=== PATIENT | male | born 1955 | race Caucasian/White ===

== ENCOUNTER 2016-11-13 09:20 | Day surgery (SDC) | payer BC, OTHER ==
[~2016-11-13 09:20] MED LIST: RINGERS SOLUTION,LACTATED 1,000 ML IV PRN
--- OUTSIDE RECORDS SUMMARY | 2016-11-13 09:24 | XMS REPORT | Continuity of Care Document ---
:1955 Author Organization ([facility]) Address [place] [address] Phone [phone] Care Team Providers Name Role Phone Sriram Stewart Primary Care Provider [phone] Source Comments This disclosure is being made pursuant to the Care Everywhere program, applicable federal and state laws, and may not contain all informaitonavailable regarding this patient. ([facility]) Active Allergies and Adverse Reactions Allergen Noted Date Severity Reactions Comments Diltiazem Hcl 10/14/2015 Unknown Current Medications Prescription Sig. Disp. Refills Start Date End Date Status metroNIDAZOLE 0.75 % Apply topically at Active gel bedtime as needed. Apply a thin layer to face acetaminophen 325 mg Take 2 tablets 60 tablet 3 10/20/2015 Active tablet (650 mg total) by mouth every 4 hours as needed. ketoconazole 2 % 11 11/23/2015 Active shampoo metoPROLol (TOPROL XL) Take 1 tablet (100 90 tablet 2 02/19/2016 Active succinate 100 mg XL mg total) by mouth tablet daily. lisinopril-hydrochloro Take 1 tablet by 90 tablet 4 03/31/2016 Active thiazide 20-12.5 mg mouth daily. per tablet Active Problems Problem Noted Date Single epileptic seizure 11/06/2015 Last Assessment & Plan: 11/06/2015 Single seizure 10/15/2015 with tongue lacceration and metabolic acidosis. It may have been alcohol related or related to fall with subdural hematoma. He has not had another known seiuzre By [place] Law he must go 6 months without another seizure in order to drive. He may work but should not drive, should avoid heights, bodies of water, or dangerous machinery. He should continue to decrease alcohol intake. The subdural hematoma increases his seizure risk to about 20% - most wouldnot treat this risk though he is generally on blood thinner. He should report his medical event to DOT. He would need documentation not sooner than 6 months after seizure - Apr 16. If you have questions please call us: Department of Neurology Epilepsy Program(8:00 a.m. to 5:00 p.m. Thursday-Thursday) at [phone] After 5:00 p.m., weekends or holidays, call [phone] and ask for the Neurologist product/industry consultant. You may also use the 24 hour Toll-free number at . Traumatic epidural hematoma 10/17/2015 Overview: Of cervical spine- monitor neuro Compression of spinal cord 10/14/2015 Overview: Monitor neuro Seizure-like activity 10/14/2015 Overview: EEG Alcohol abuse 12/09/2014 Chronic atrial fibrillation 12/09/2014 Overview: Formatting of this note may be different from the original. CARDIOVASCULAR PROCEDURES ECHO/MUGA: Echo (Left ventricular systolic function is normal. The left atrium is borderline dilated. There is mild mitral regurgitation. There is aortic valve sclerosis without stenosis. ) - 03/14/2008 Echo: Normal left ventricular systolic function. LV Ejection Fraction=55-65% (based on visual estimate). No significant valve disease. 10/19/2015 STRESS TESTS: MPI (Normal EF, Normal, Full Layo 10:00) - 03/14/2008 VASCULAR: KADEN (Normal) - 02/18/2008 Carotid Duplex (Mild Disease in Bilateral ICAs, Vertebral: Bilateral Antegrade Flow) - 11/11/2012 Tobacco abuse 12/09/2014 intermodal owner operator truck driver (current) use of anticoagulants 12/07/2014 Overview: ANTICOAGULATION PROFILE: Primary Number: [phone] LOCAL LAB: Name: [facility] Phone: Fax: Indication for Warfarin: Atrial Fibrillation Target INR Range: 2.0-3.0 Duration of Warfarin Therapy: Indefinite Date Warfarin Initiated: Alcohol use: 2-8 per day Essential (primary) hypertension 12/15/2013 CVA (cerebral infarction) Immunizations Name Dates Previously Given Next Due Pneumococcal Polysaccharide, PPSV23 (Pneumovax 23) 10/19/2015 Social History Tobacco Use Types Packs/Day Years Used Date Current Every Day Smoker Cigarettes 1 Smokeless Tobacco: Never Used Tobacco Cessation:Ready to Quit: No Comments: Alcohol Use Drinks/Week oz/Week Comments Yes Last Filed Vital Signs Vital Sign Reading Time Taken Blood Pressure 134/66 12/18/2015 9:11 AM CDT Pulse 70 12/18/2015 9:11 AM CDT Temperature 35.9 C (96.6 F) 11/02/2015 9:16 AM CDT Respiratory Rate 16 10/20/2015 4:00 AM CDT Height 1.93 m (6' 3.98") 12/18/2015 9:11 AM CDT Weight 83.462 kg (184 lb) 12/18/2015 9:11 AM CDT Body Mass Index 22.41 12/18/2015 9:11 AM CDT Oxygen Saturation 99% 10/20/2015 8:03 AM CDT Plan of Care Date Type Specialty Providers Description 12/16/2016 Appointment Heart and Vascular Mishel Ramirez MD Chief Comp: Patient [address] Reported Reason For [place] [id number] Visit [phone] (Fax) Health Maintenance Due Date Last Done Comments HCV Screening 1955 Hepatitis B Vaccine (1 of 3 - Primary Series) 1955 Tdap Vaccine 1965 Lipid Disorder Screening 1972 Td Vaccine 1972 Colonoscopy 04/24/2004 Prostate Cancer Screening 2004 Zoster Vaccine 2014 Influenza Vaccine: Seasonal (#1) 02/18/2016 Pneumococcal Vaccine Completed 10/19/2015 Results from Last 3 Months Not on file
[2016-11-13] MEDS ORDERED: RINGERS SOLUTION,LACTATED 1,000 ML IV ONE (09:40)
[2016-11-13 12:26] VITALS: BP 122/70
== END 2016-11-13 09:21 | disposition home or self-care (01) ==
LOC: AMB 09:20
PROVIDERS: ATTEND Allergy & Immunology
PROC: 0DJ08ZZ Inspection of Upper Intestinal Tract, Via Natural or Artificial Opening Endoscopic (ICD-10-PCS; 2016-11-13)
PROC: 0CBV8ZX Excision of Left Vocal Cord, Via Natural or Artificial Opening Endoscopic, Diagnostic (ICD-10-PCS; principal; 2016-11-13 11:40)
DX: D02.0 Carcinoma in situ of larynx (principal); R49.0 Dysphonia; R13.10 Dysphagia, unspecified; I10 Essential (primary) hypertension; F17.200 Nicotine dependence, unspecified, uncomplicated; Z68.23 Body mass index [BMI] 23.0-23.9, adult

== ENCOUNTER 2016-11-16 15:46 | Emergency (ER) | payer BC, OTHER ==
--- OUTSIDE RECORDS SUMMARY | 2016-11-16 16:08 | XMS REPORT | Continuity of Care Document ---
:1955 Author Organization [facility] ([facility]) Address [place] [address] Phone [phone] Care Team Providers Name Role Phone Sriram Stewart Primary Care Provider [phone] Source Comments This disclosure is being made pursuant to the Care Everywhere program, applicable federal and state laws, and may not contain all informaitonavailable regarding this patient.[facility] ([facility]) Active Allergies and Adverse Reactions Allergen Noted [...] has not had another known seiuzre By [place] Law he must go 6 months without [...] Program(8:00 a.m. to 5:00 p.m. Thursday-Thursday) at [phone] After 5:00 p.m., weekends or holidays, call [phone] and ask for the Neurologist senior litigation paralegal. 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
[2016-11-16 16:18] LABS: Hematocrit 37.6 % (42.0-52.0); Hemoglobin 13.2 gm/dL (13.5-18.0); Mean Cell Volume 97.2 fl (78-100); Mean Corpuscular Hemoglobin 34.1 pg (27-31); Mean Corpuscular Hgb Conc 35.1 g/dl (32-36); Mean Platelet Volume 9.3 fl (6.0-9.5); Neutrophil # 4.1 K/mm3 (1.3-6.0); Platelet Count 174 K/mm3 (150-450); Red Blood Count 3.87 M/mm3 (4.7-6.0); Red Cell Distribution Width 11.9 % (11.5-14.0); White Blood Count 6.3 K/mm3 (4.0-10.5)
--- NOTE | 2016-11-16 16:28 | ERNOTE ---
Neuro HPI ER Record Date of Service: 11/16/16 Presenting Symptoms: other - Seizure Time Seen by Provider: 11/16/16 15:59 Source: patient, family, RN notes reviewed, EMS notes reviewed Exam Limitations: no limitations Immunizations: IMMUNIZATION HX Immunizations Up to Date Yes History of Influenza Vaccine Yes Hx Pneumococcal Vaccination No Allergies/Adverse Reactions: Allergies Allergy/AdvReac Type Severity Reaction Status Date / Time diltiazem HCl [From Cardizem] AdvReac Mild SHAKINESS, Verified 11/16/16 15:51 IMPOTENCE Home Medications: HOME MEDICATIONS Metoprolol Succinate [Toprol Xl] 100 mg PO DAILY 11/20/14 [Last Taken 04/18/15 07:00] Lisinopril/Hydrochlorothiazide [Lisinopril-Hctz 20-12.5 mg Tab] 1 each PO DAILY 11/13/16 [Last Taken 11/13/16 08:00] Sildenafil Citrate [Viagra] 100 mg PO PRN PRN 11/13/16 [Last Taken Unknown] Aspirin/Calcium Carbonate/Mag [Aspirin Buffered 325 mg Tab] 325 mg PO DAILY [Last Taken Unknown] - History of Present Illness Narrative: 61 y/o male brought to the ED by EMS from home after an episode of seizure activity. He was asleep in the recliner when his noticed that he was having repetitive jerking movements. She went across the street to get their neighbor for help. The episode had stopped when she returned. He has had similar episodes in the past. She reports that they were told his seizures were due to dehydration and hyponatremia because he dose not drink enough water. He has been evaluated by neurology at [facility]. The symptoms were never determined to actually be seizures. He is not on any anticonvulsant medication. He had a laryngoscopy done here by Dr. Allen 3 days ago to evaluate dysphagia and hoarseness. He has not been eating or drinking as much as usual since then. He reports drinking 6 beers per day (his says it is more than this) but has not had any alcohol today. Onset: sudden onset, gone now - Character of Deficits Baseline Cognition: Present: alert, oriented x 4 Baseline Gait: Present: walks w/o assistance Associated Symptoms: Denies: fever/chills, sweating, chest pain, neck/back pain , headache, altered mental status, disoriented, confused Prior Treament: Reports: similar symptoms before. Denies: recently seen Review of Systems - Review of Systems Constitutional: Absent: recent illness, fever EYE: Absent: blurred vision, vision changes ENT: Absent: nose congestion, sore throat Respiratory: Absent: shortness of breath, cough Cardiology: Absent: chest pain, palpitations Gastrointestinal/Abdominal: Absent: nausea, vomiting, abdominal pain Genitourinary: Absent: frequency, dysuria Musculoskeletal: Absent: muscle pain, neck pain Skin: Absent: rash, lesions Neurological: Absent: headache, dizziness/light-headedness Endocrine: Present: no symptoms reported Hematologic/Lymphatic: Present: no symptoms reported Psych: Present: no symptoms reported - Patient's Past Medical History Patient History - Medical: Arthritis, Seizures, Other - Erectile dysfunction Patient History - Cardiac/Respiratory: Atrial Fibrillation, CVA/Stroke, Hypertension, Hyperlipidemia Patient History - Cancer: Skin Patient History - Surgical Procedures: Colonoscopy, T & A, Orthopedic Patient History - Other: None - Family History Father Family History - Medical: No pertinent hx Family History - Cardiac/Respiratory: Myocardial Infarction Family History - Cancer: No pertinent family hx Brother Family History - Medical: Dementia Family History - Cardiac/Respiratory: No pertinent hx Family History - Cancer: No pertinent family hx - Social History Living Situations: spouse Abuse History: No History of abuse Psych History: No pertinent hx Smoking Status: Current every day smoker Have you smoked in the past 12 months: Yes Alcohol Use: occasionally Drug Use: none - Immunizations Immunizations Up to Date: Yes Hx Pneumococcal Vaccination: No History of Influenza Vaccine: Yes Physical Exam - Physical Exam General Appearance: Present: wd/wn, alert, no apparent distress Eye Exam: Normal inspection: bilateral, PERRL: bilateral, EOMI: bilateral Neck: Present: normal inspection, nontender, supple, full range of motion Respiratory: Present: no respiratory distress, normal breath sounds, no accessory muscle use, lungs clear Cardiovascular/Chest: Present: no murmur, normal peripheral pulses, irregularly irregular - Afib on monitor Gastrointestinal/Abdominal: Present: nontender, nondistended, soft Extremity Exam: Present: normal inspection, no edema Neurological Exam: Present: alert, oriented, no motor/sensory deficits, other - flat affect. Absent: normal mood/affect Skin Exam: Present: normal color, warm/dry Randolph Coma Scale - Assess Eye Opening: Spontaneous Motor: Obeys Commands Verbal: Oriented - Total Coma Scale Total: 15 ED Progress - Results and Orders Patient's Lab Results:: I have reviewed the patient's lab results. - Vital Signs Patient's Vital Signs:: I have reviewed the patient's vital signs. Vital Signs: Vital Signs 11/16/16 11/16/16 15:47 15:52 Temperature 36.4 C L Pulse Rate 83 79 Respiratory 15 Rate Blood Pressure 109/64 O2 Sat by Pulse 92 Oximetry - Progress/Reassessment Chief Complaint: Seizure Activity Progress:: Improved Progress Note-Subjective: 11/16/16 20:01 Heart rate is now staying in the 70's and BP has improved. Patient states he feels fine but has said this all along. Symptoms likely r/t chronic alcohol use along with dehydration. Patient instructed not to drive until he has had further evaluation. Departure Clinical Impression: Seizure, Dehydration - Departure Disposition: Home Follow Up Needed Condition: Stable Instructions: Seizure, Adult, [id number] Additional Instructions: Drink at least 48 ounces of water per day Decrease alcohol consumption Contact your doctor's office tomorrow for a follow-up appointment - your labs need to be rechecked in the next 3-[address] until cleared by your doctor Referrals: Sriram Stewart, [Primary Care Provider] -
[2016-11-16 16:29] LABS: Albumin * 3.2 gm/dl (3.4-5.0); Anion Gap 15.7 mmol/L (6.8-13.8); BUN/Creatinine Ratio 10.6 (9.0-21.6); Bilirubin, Total 0.6 mg/dL (0.0-1.1); Ca. Corrected For Albumin 8.6 mg/dL (8.4-10.2); Calcium * 8.3 mg/dL (7.9-10.9); Carbon Dioxide 25.3 mmol/L (24-32.6); Total Protein 6.9 gm/dL (6.2-8.2)
[2016-11-16] MEDS ORDERED: NORMAL SALINE 1,000 ML IV ONE (16:37)
[2016-11-16 18:53] LABS: Urine Appearance Clear; Urine Bilirubin Negative (NEGATIVE); Urine Blood Negative /ul (NEGATIVE); Urine Color Yellow; Urine Ketone Negative (NEGATIVE); Urine Nitrite Negative (NEGATIVE); Urine Protein 15 mg/dL (NEGATIVE); Urine Specific Gravity 1.015 SP.GR. (1.005-1.030); Urine Urobilinogen Normal (NORMAL)
[2016-11-16 18:54] LABS: Urine Bacteria None Seen; Urine RBC None Seen /hpf (0-5); Urine WBC 0-5 /hpf (0-5)
[2016-11-16 19:33] LABS: Cocaine Ur Negative (NEGATIVE); Urine Barbiturate Negative (NEGATIVE); Urine Benzodiazepines Negative (NEGATIVE); Urine Opiates Negative (NEGATIVE); Urine PCP Negative (NEGATIVE); Urine THC Negative (NEGATIVE)
[2016-11-16 20:13] VITALS: BP 130/79
== END 2016-11-16 20:15 | disposition home or self-care (01) ==
LOC: ER 15:46
DX: G40.409 Other generalized epilepsy and epileptic syndromes, not intractable, without status epilepticus (principal); E86.0 Dehydration; Z72.0 Tobacco use; Z85.828 Personal history of other malignant neoplasm of skin; I10 Essential (primary) hypertension; I48.91 Unspecified atrial fibrillation; Z79.01 Long term (current) use of anticoagulants
CPT/HCPCS: 36415; 80053; 80307; 81001; 83735; 85025; 96360; 96361; 99284; G0481

== ENCOUNTER 2016-11-17 05:11 | Emergency (ER) | payer BC, OTHER ==
--- NOTE | 2016-11-17 05:42 | ERNOTE ---
Neuro HPI ER Record Date of Service: 11/17/16 Presenting Symptoms: other - SEIZURE Time Seen by Provider: 11/17/16 05:40 Source: patient, EMR, other - OLD RECORDS Exam Limitations: clinical condition Immunizations: IMMUNIZATION HX Immunizations Up to Date Yes History of Influenza Vaccine Yes Hx Pneumococcal Vaccination No Allergies/Adverse Reactions: Allergies Allergy/AdvReac Type Severity Reaction Status Date / Time diltiazem HCl [From Cardizem] AdvReac Mild SHAKINESS, Verified 11/16/16 15:51 IMPOTENCE Home Medications: HOME MEDICATIONS Metoprolol Succinate [Toprol Xl] 100 mg PO DAILY 11/20/14 [Last Taken 04/18/15 07:00] Lisinopril/Hydrochlorothiazide [Lisinopril-Hctz 20-12.5 mg Tab] 1 each PO DAILY 11/13/16 [Last Taken 11/13/16 08:00] Sildenafil Citrate [Viagra] 100 mg PO PRN PRN 11/13/16 [Last Taken Unknown] Aspirin/Calcium Carbonate/Mag [Aspirin Buffered 325 mg Tab] 325 mg PO DAILY [Last Taken Unknown] levETIRAcetam [Keppra] 500 mg PO BID #30 tablet 11/17/16 [Last Taken Unknown] - History of Present Illness Narrative: REPORTED TO HAVING HAD A SEIZURE REINSTATEMENT CLERK NOTICE BY HIS PT . [place] SLEEPING IN BED. SHE REPORTS SHE NOTED HIM SHAKING ALL OVER FOR ABOUT 1 MINUTE THEN STOP AND THEN HAS NORING TIME , DEEP RESPIRATIONS , THEN AWAKENED BUT WAS GROOGY THOUGH HAS SLOWLY COME BACK TO HIS NORMAL ALERTNESS. HIS COMPLAINT IS THAT HE FEELS TIRED AND HIS THROAT HURTS ( THIS HAS BEEN A CHRONIC COMPLAINT OVER THE PAST FEW MONTHS LEADING HIM TO HAVE AN UPPER ENDOSCOPY LAST WEEK BY ENT, DR. MEYER , WITH RESULTS OF THE SCOPE AND BIOPSIES YET UNKNOWN). HE IS A 39 YR SMOKER AND HAS HX OF FAIRLY HEAVY DAILY DRINKING OF AT LEAST A 6 PACK A DAY THOUGH HE HAS NOT HAD MORE THAN TWO BEERS LAST NIGHT. HE HAD 2 SIMILAR SPELLS LAST YEAR LEADING TO A WEEK EVALUATION IN [place] WHERE NO CAUSE WAS FOUND AND WAS LEFT UNSATISFIED SHE FEELS THEY DIDN'T BELIEVE HE EVEN HAD A SEIZURES. DAUGHTER BELIEVES HE HAS O.S.A. BUT HE HAS NEVER BEEN TESTED FOR THIS AND NEVER HAD TREATMENT. HE WAS ALSO SEEN HERE YESTERDAY FOR A SEIZURE WITH FAIRLY UNREMARKABLE LABS. HE HAS NEVER BEEN ON ANTICONVULSANTS GIVEN HIS EPISODES HAVE BEEN SCARCE UNTIL NOW. HE DID HAVE A SMALL FALL AFTER THE SPELL THIS MORNING AND BUMPED HIS ARM. NO HX. OF LOC. PT HAS NOT BEEN ON ANY PAIN MEDS OTHER THAN TYLENOL. Review of Systems - Review of Systems Constitutional: Present: See HPI EYE: Present: no symptoms reported ENT: Present: sore throat Respiratory: Present: no symptoms reported Cardiology: Present: no symptoms reported Gastrointestinal/Abdominal: Present: no symptoms reported Genitourinary: Present: no symptoms reported Musculoskeletal: Present: no symptoms reported Skin: Present: no symptoms reported Neurological: Present: See HPI, seizure Endocrine: Present: no symptoms reported Hematologic/Lymphatic: Present: no symptoms reported Psych: Present: no symptoms reported All Other Systems: All systems neg except as marked - Patient's Past Medical History Patient History - Medical: Arthritis, Seizures, Other Patient History - Cardiac/Respiratory: Atrial Fibrillation, CVA/Stroke, Hypertension, Hyperlipidemia Patient History - Cancer: Skin Patient History - Surgical Procedures: Colonoscopy, T & A, Orthopedic Patient History - Other: None - Family History Father Family History - Medical: No pertinent hx Family History - Cardiac/Respiratory: Myocardial Infarction Family History - Cancer: No pertinent family hx Brother Family History - Medical: Dementia Family History - Cardiac/Respiratory: No pertinent hx Family History - Cancer: No pertinent family hx - Social History Living Situations: spouse Abuse History: No History of abuse Psych History: No pertinent hx Smoking Status: Current every day smoker Alcohol Use: occasionally Drug Use: none - Immunizations Immunizations Up to Date: Yes Hx Pneumococcal Vaccination: No History of Influenza Vaccine: Yes Physical Exam - Physical Exam General Appearance: Present: wd/wn, alert, no apparent distress - IS TIRED BUT EAISILY AROUSED AND ALERT AND ORIENTED WITH NO COMPLAINTS EXCEPT FOR SORE THROAT. Eye Exam: Normal inspection: bilateral, PERRL: bilateral, EOMI: bilateral Ears, Nose, Throat: Present: normal except -, other - EXCEPT SMALL FRESH BITE EUGENIE , NOT BLEEDING, TO THE TIP OF HIS TONGUE Neck: Present: normal inspection, nontender Respiratory: Present: no respiratory distress, normal breath sounds, no accessory muscle use, chest nontender, lungs clear Cardiovascular/Chest: Present: no murmur, normal peripheral pulses, irregularly irregular Peripheral Pulses: N=norm/S=strong/W=weak/B=bound/A=absent: Radial (R): Normal, Radial (L): Normal, Dorsalis-pedis (R): Normal, Dorsalis-pedis (L): Normal Gastrointestinal/Abdominal: Present: normal bowel sounds, nontender Extremity Exam: Present: normal except - - SMALL ABRASION TO LEFT FOREARM Neurological Exam: Present: alert, oriented, normal mood/affect, no motor/ sensory deficits DTR: N=norm/NB=norm/brisk/A=abs/DD=dull/dimin/HC=hyperactive: Tricep (R): Normal , Tricep (L): Normal, Knee (R): Normal, Knee (L): Normal Skin Exam: Present: normal color, warm/dry - HE HAS A FLUSHED , ALMOST SUNBURNED FACIES THAT FAMILY SAYS IS NORMAL FOR HIM Arnie Coma Scale - Assess Eye Opening: Spontaneous Motor: Obeys Commands Verbal: Oriented - Total Coma Scale Total: 15 ED Progress - Results and Orders Patient's Lab Results:: I have reviewed the patient's lab results. Results and Orders: HGB IS 12.3 WITH NA+ = 130 ( HE HAS HX OF BORDERLINE LOW NA+) , AND ALBUMIN = 3.0 - Vital Signs Patient's Vital Signs:: I have reviewed the patient's vital signs. Vital Signs: Vital Signs 11/17/16 11/17/16 05:12 05:23 Temperature 37.1 C Pulse Rate 83 81 Respiratory 18 Rate Blood Pressure 133/71 O2 Sat by Pulse 94 Oximetry - EKG EKG: atrial fibrillation - RATE CONTROLLED , RBBB - CT/Ultrasound CT/Ultrasound Narrative: CT BRAIN WITH NO ACUTE FINDING / ARGUS REPORT . HE DOES HAVE EVIDENCE OF OLD RIGHT CEREBELLUM INFARCT. - Progress/Reassessment Chief Complaint: Seizure Activity Progress:: Improved - Transfer of Care Expected Disposition: Discharge Departure Clinical Impression: Seizure disorder, Chronic hyponatremia - Departure Disposition: Home Follow Up Needed Condition: Good Instructions: Epilepsy, [id number], Hyponatremia, [id number] Additional Instructions: START THE KEPPRA FOR NOW . BE SURE TO FOLLOW UP WITH YOUR DOCTOR LATER TODAY TO SEE IF THEY WANT YOU RECHECKED IN THEIR OFFICE OR WANT YOU REFERRED TO A NEUROLOGIST FOR FURTHER EVALUATION. TRY TO LIMIT YOUR BEER TO 2 A DAY. Referrals: Sriram Stewart DO [Primary Care Provider] - Prescriptions: levETIRAcetam [Keppra] 500 mg PO BID #30 tablet
[2016-11-17] MEDS ORDERED: THIAMINE HCL 100 MG in NORMAL SALINE 50 ML IV ONE ×2 (05:48→08:30)
[2016-11-17 06:01] LABS: Hemoglobin 12.3 gm/dL (13.5-18.0); Mean Cell Volume 96.7 fl (78-100); Mean Corpuscular Hgb Conc 35.1 g/dl (32-36); Mean Platelet Volume 9.6 fl (6.0-9.5); Neutrophil # 6.4 K/mm3 (1.3-6.0); Neutrophil % 82.2 % (42-75.0); Platelet Count 154 K/mm3 (150-450); Red Blood Count 3.62 M/mm3 (4.7-6.0); Red Cell Distribution Width 11.9 % (11.5-14.0); White Blood Count 7.7 K/mm3 (4.0-10.5)
[2016-11-17] MEDS ORDERED: ACETAMINOPHEN 325 MG TABLET PO ONE (06:02)
[2016-11-17] MEDS ORDERED: ACETAMINOPHEN 325 MG TABLET ONE (06:04)
[2016-11-17 06:20] LABS: ALT 36 U/L (19-67); AST 45 U/L (0-48); Alkaline Phosphatase * 86 U/L (50-170); Anion Gap 14.6 mmol/L (6.8-13.8); BUN/Creatinine Ratio 14.4 (9.0-21.6); Bilirubin, Total 0.7 mg/dL (0.0-1.1); Blood Urea Nitrogen 18 mg/dL (6-23); Ca. Corrected For Albumin 8.6 mg/dL (8.4-10.2); Calcium * 8.1 mg/dL (7.9-10.9); Carbon Dioxide 25.4 mmol/L (24-32.6); Chloride 94 mmol/L (97-106); Glucose * 117 mg/dL (70-110); Sodium 130 mmol/L (132-142); Total Protein 6.5 gm/dL (6.2-8.2)
[2016-11-17 06:22] LABS: Troponin I 0.018 ng/ml (0.00-0.10)
--- OUTSIDE RECORDS SUMMARY | 2016-11-17 06:37 | XMS REPORT | Continuity of Care Document ---
:1955 Author Organization [facility] ([facility]) [place] [address] Phone [phone] Care Team Providers Name Role Phone Sriram Stewart Primary Care Provider [phone] Source Comments This disclosure is being made pursuant to the Care Everywhere program, applicable federal and state laws, and may not contain all informaitonavailable regarding this patient.[facility] ([facility]) Active Allergies and Adverse Reactions Allergen Noted [...] has not had another known seiuzre By [place] Law he must go 6 months without [...] Program(8:00 a.m. to 5:00 p.m. Thursday-Thursday) at [phone] After 5:00 p.m., weekends or holidays, call [phone] and ask for the Neurologist nurse infection control. You may also use the 24 hour [...] anticoagulants 12/07/2014 Overview: ANTICOAGULATION PROFILE: Primary Number: [phone] LOCAL LAB: Name: [facility] Phone: Fax: Indication for Warfarin: Atrial Fibrillation [...] Patient [address] Reported Reason For [place] [id number] Visit [phone] (Fax) Health Maintenance Due Date Last Done [...]
[2016-11-17 09:46] VITALS: BP 135/93
== END 2016-11-17 10:08 | disposition home or self-care (01) ==
LOC: ER 05:11
DX: G40.909 Epilepsy, unspecified, not intractable, without status epilepticus (principal); E87.1 Hypo-osmolality and hyponatremia; F17.210 Nicotine dependence, cigarettes, uncomplicated; I10 Essential (primary) hypertension; I63.9 Cerebral infarction, unspecified; I48.91 Unspecified atrial fibrillation
CPT/HCPCS: 36415; 70450; 80053; 84484; 85025; 93005; 96365; 96367; 99284; G0481

== ENCOUNTER 2017-07-16 06:53 | Day surgery (SDC) | payer BC, OTHER ==
[~2017-07-16 06:53] MED LIST changes: +RINGER'S SOLUTION,LACTATED 1,000 ML IV PRN; -RINGERS SOLUTION,LACTATED 1,000 ML IV PRN; +ceFAZolin SODIUM 1 GM VIAL IV PRN
[2017-07-16] MEDS ORDERED: RINGER'S SOLUTION,LACTATED 1,000 ML IV ONE (07:30)
[2017-07-16] MEDS ORDERED: BUPIVACAINE HCL 50 ML VIAL IJ ONE ×2 (07:55)
--- NOTE | 2017-07-16 08:32 | OR ---
Operative Report - Dictated Report Narrative: Date: 07/16/2017 Physician: Ryan Mcintyre M.D. 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 Physical exam as well as diagnostic testing showed compression of the median nerve compatible with carpal tunnel syndrome. Conservative measures have failed including but not limited to activity modification, medications, and/or bracing. The risks, benefits, and alternatives were discussed in clinic. The risks being bleeding, infection, nerve, tendon, blood vessel injury, persistent pain, wound complications, weakness, palm pain, need for additional procedures, and persistent symptoms. Consent was obtained in the clinic. Procedure: After marking the correct extremity in the preoperative holding area, a timeout was performed in the operating room. IV antibiotics consisting of 2 g of Ancef were administered prior to the procedure. A well-padded tourniquet was applied to the operative upper arm. The arm was exsanguinated and the tourniquet was inflated to 250 mmHg. 0.5% Marcaine without epinephrine was infused into the projected incision site. Using Loupe magnification, a longitudinal incision was made in line with the longitudinal hypothenar crease, or approximately in line with the ring finger, from just distal to the wrist flexion crease and extending approximately 2.5 cm distally. Blunt dissection and hemostasis with bipolar cautery was carried out throught the subcutaneous tissue and palmar fascia down to the level of the transverse carpal ligament. Ragnel retractors were used to retract the surrounding soft tissue and provide good visualization of the transverse carpal ligament. The transverse carpal ligament was then sharply incised longitudinally with a 15-blade scalpel. A [place] elevator was then slid underneath the transverse carpal ligament distally, protecting the median nerve, and the remaining distal portion of the transverse carpal ligament was sharply divided. This was then repeated proximally to divide the remaining proximal portion. Tenotomy scissors were used to divide any remaining transverse carpal ligament and palmar fascia distally being careful to avoid the superficial palmar arch. The distal forearm fascia was released ensuring that the median nerve was completely decompressed utilizing tenotomy scissors. The median nerve was then carefully inspected. Once it was felt that all the tissues overlying the median nerve were completely released, the wounds were thoroughly irrigated with saline. Tourniquet was deflated and hemostasis was obtained with pressure as well as bipolar cautery. Once bleeding had resolved and there was no excessive bleeding, the wounds were closed with interrupted 4-0 nylon. Xeroform, 4 x 4's, soft roll, and a well- padded dorsal short arm wrist splint was applied. The patient was awoken and transferred to the post-anesthesia care unit in stable condition. All sponge, needle, blade, and instrument counts were correct prior to closing the wounds. Additional 0.5% Marcaine without epinephrine was infused into the skin edges for pain control.
[2017-07-16 09:16] VITALS: BP 117/75
== END 2017-07-16 06:54 | disposition home or self-care (01) ==
LOC: AMB 06:53
PROVIDERS: ATTEND Orthopaedic Surgery
PROC: 01N50ZZ Release Median Nerve, Open Approach (ICD-10-PCS; principal; 2017-07-16 08:00)
DX: G56.01 Carpal tunnel syndrome, right upper limb (principal); I10 Essential (primary) hypertension; I48.91 Unspecified atrial fibrillation; F17.200 Nicotine dependence, unspecified, uncomplicated; F10.20 Alcohol dependence, uncomplicated; Z86.73 Personal history of transient ischemic attack (TIA), and cerebral infarction without residual deficits; Z68.23 Body mass index [BMI] 23.0-23.9, adult